=== PATIENT | female | born 1990 | race Two or more races ===

== ENCOUNTER 2017-12-21 10:52 | Emergency (ER) | payer OTHER ==
[~2017-12-21] VITALS: Ht 147.3 cm; Wt 70.9 kg
[~2017-12-21 10:52] MED LIST: AMOXICILLIN500 M1 PO; COLCHICINE0.6 M1 PO; CONCERTA36 MG PO; DILAUDID2 MG PO; ENDOCET 5-3251 EACH PO; FLINTSTONES1 EACH PO; IBUPROFEN800 MG PO; KEFLEX500 MG PO; METHYLPHENIDATE20 MG PO; MOTRIN600 MG PO; NORCO 5/3251 TABLET PO; PRENATAL TABLE1 EAC3 PO; SEROQUEL300 MG PO; STRATTERA25 MG PO; STRATTERA60 MG PO; ZOLPIDEM TARTRA10 MG PO; [UNRECOGNIZED DRUG - OTHER] PO
[2017-12-21 11:34] LABS: HEMOGLOBIN 12.1 G/DL (11.9-15.5); MCH 29.4 PG (29.0-34.0); MCHC 34.6 G/DL (30.0-36.0); MCV 85.2 FL (83-99); PLATELET COUNT 311 K/uL (156-360); RBC DIS.WIDTH-CV 13.2 % (11.8-14.6); RBC DIS.WIDTH-SD 40.8 % (39-53); RED BLOOD COUNT 4.11 M/uL (3.80-5.20)
[2017-12-21 11:43] LABS: CHLORIDE 108 mEq/L (99-109); POTASSIUM 4.1 mEq/L (3.7-5.4); SODIUM 140 mEq/L (136-147)
[2017-12-21 11:45] LABS: GLUCOSE 79 mg/dL (70-99)
[2017-12-21 11:49] LABS: CREATININE 0.6 mg/dL (0.6-1.3); GFR ESTIMATE (CALCULATED) > 59 mL/min/
[2017-12-21 11:50] LABS: UREA NITROGEN (BUN) 4 mg/dL (9-23)
[2017-12-21 11:53] LABS: TROP-I INTERPRETATION NEGATIVE; TROPONIN-I < 0.01 ng/mL (0.0-0.30)
[2017-12-21 13:40] LABS: ALBUMIN 3.7 g/dL (3.2-4.8)
[2017-12-21 13:45] LABS: TOTAL BILIRUBIN 0.3 mg/dL (0.0-1.0)
[2017-12-21 13:46] LABS: ALKALINE PHOSPHATASE 57 IU/L (3-129)
[2017-12-21 13:48] LABS: AST (GOT) 12 IU/L (2-34); DIRECT BILIRUBIN 0.1 mg/dL (0.0-0.3)
[2017-12-21 13:48] LABS: APPEARANCE SL.HAZY ((CLEAR)); BILIRUBIN NEGATIVE; BLOOD NEGATIVE; COLOR YELLOW ((YELLOW)); GLUCOSE (STRIP) NEGATIVE; KETONES 20; LEUKOCYTES SMALL; NITRITE NEGATIVE; PROTEIN (STRIP) NEGATIVE; SPECIFIC GRAVITY 1.018 (1.000-1.030)
[2017-12-21 13:49] LABS: ALT (GPT) 7 IU/L (3-49)
[2017-12-21 13:56] LABS: BACTERIA 1+ /HPF; EPITHELIAL CELLS 1+ /HPF; MUCUS 3+ /LPF; RED BLOOD CELLS 0-5 /HPF (0-5); UCUL ADDED? NO; WHITE BLOOD CELLS 0-5 /HPF (0-5)
[2017-12-21 14:56] LABS: QUANTITATIVE HCG 22940.6 MIU/ML
[2017-12-21 17:26] LABS: TROP-I INTERPRETATION NEGATIVE; TROPONIN-I < 0.01 ng/mL (0.0-0.30)
[2017-12-21 18:04] VITALS: BP 118/63
== END 2017-12-21 18:04 | disposition home or self-care (01) ==
LOC: EME 10:52 → RME 10:52
PROVIDERS: Physician Assistant
DX: O99.89 Other specified diseases and conditions complicating pregnancy, childbirth and the puerperium (principal); R07.9 Chest pain, unspecified; O99.342 Other mental disorders complicating pregnancy, second trimester; F32.9 Major depressive disorder, single episode, unspecified; Z3A.22 22 weeks gestation of pregnancy
CPT/HCPCS: 71275; 80048; 80076; 81003; 84484; 84702; 85027; 85379; 93005; 99281; 99284; J7030